=== PATIENT | female | born 1980 | race Caucasian/White ===

== ENCOUNTER 2016-07-21 14:48 | Emergency (ER) | payer OTHER ==
[2016-07-21] MEDS ORDERED: OPTIRAY 350 100 ML VIAL HMH IV ONE (14:49)
[2016-07-21] MEDS ORDERED: KETOROLAC 30 MG/ML VIAL ONE ×2 (16:58→17:24)
== END 2016-07-21 19:12 | disposition home or self-care (01) ==
LOC: ER 14:48
CPT/HCPCS: 36415; 71020; 71260; 80053; 80307; 81001; 82553; 83690; 84484; 84703; 85025; 85610; 85730; 87088; 93005; 96374